=== PATIENT | male | born 1940 | race Caucasian/White ===

== ENCOUNTER 2022-06-04 01:38 | Inpatient (IN) ==
[2022-06-04] MEDS ORDERED: Iopamidol - 370 500 ML MLS IVP ONE (03:08)
[2022-06-04 03:09] LABS: Basophils # 0.1 K/mcL (0.0-0.2); Basophils % 0.6 %; Eosinophils % 0.2 %; Hematocrit 46.9 % (37.5-50.1); Hemoglobin 15.3 g/dL (12.9-16.9); Immature Granulocytes % 0.5 % (0-4); Lymphocytes # 0.6 K/mcL (0.6-4.6); Lymphocytes % 5.1 %; Mean Corpuscular HGB Conc 32.6 g/dL (31.6-35.5); Mean Corpuscular Hemoglobin 30.5 pg (28.0-33.3); Mean Corpuscular Volume 93.6 fL (83.0-100.0); Monocytes # 0.8 K/mcL (0.0-1.3); Monocytes % 6.9 %; Neutrophils # 10.1 K/mcL (1.6-8.9); Platelet Count 391 K/mcL (140-400); Red Blood Count 5.01 M/mcL (4.19-5.50); Red Cell Distribution Width 13.5 % (11.5-14.5); Segmented Neutrophils % 86.7 %; White Blood Count 11.6 K/mcL (4.3-11.1)
[2022-06-04 03:26] LABS: BUN/Creatinine Ratio 19 (6-26); Blood Urea Nitrogen 18 mg/dL (8-23); Calcium 10.2 mg/dL (8.6-10.3); Carbon Dioxide 34 mEq/L (23-29); Chloride 96 mEq/L (98-107); Glucose 183 mg/dL (70-105); Lipase 3 Units/L (11-82); Osmolality,Calculated 291 (280-300); Potassium 4.1 mEq/L (3.5-5.1); Sodium 137 mEq/L (136-145); eGFR For African Americans > 60 (> 60); eGFR For Non-African Americans > 60 (> 60)
[2022-06-04 03:39] LABS: Bilirubin,Urine Negative (Negative); Blood,Urine Small (Negative); Clarity,Urine Clear (Clear); Color,Urine Light-Yellow (Yellow); Glucose,Urine (UA) Normal (Normal); Hyaline Casts,Urine Moderate per lpf (None Seen); Ketones,Urine Negative (Negative); Leukocyte Esterase,Urine Negative (Negative); Mucus,Urine Few per lpf (None-Few); Nitrite,Urine Negative (Negative); Protein,Urine Negative (Neg-Trace); Specific Gravity,Urine 1.015 (1.010-1.025); Squamous Epithelial Cell,Urine Few per hpf (None-Few); Urobilinogen,Urine Normal (Normal); WBC,Urine 0-3 per hpf (0-3)
[2022-06-04] MEDS ORDERED: Melatonin 3 MG TABLET PO PRN ×2 (06:01→13:18)
[2022-06-04] MEDS ORDERED: Naloxone 0.4 MG/ML INJ IVP PRN ×2 (06:01→13:18)
[2022-06-04] MEDS ORDERED: Perflutren Lipid Microsphere 1.3 ML in 0.9 % Sodium Chloride 8.7 ML IVP PRN ×3 (06:27→13:18)
[2022-06-04 06:42] LABS: Thyroid Stimulating Hormone 8.393 mcIU/mL (0.340-5.600)
[2022-06-04] MEDS ORDERED: *HR* Rocuronium Bromide 50 MG/5 ML VIAL ONE (08:36)
[2022-06-04] MEDS ORDERED: Lidocaine -MPF 2% 5 ML VIAL ONE ×2 (08:36→11:02)
[2022-06-04] MEDS ORDERED: *HR* Propofol 200 MG/20 ML VIAL IVP ONE (08:36)
[2022-06-04] MEDS ORDERED: Lidocaine HCL 4 ML Topical Solution (Laryng-O-Jet Kit Sterile Pak) TP ONE (08:36)
[2022-06-04] MEDS ORDERED: *HR* Succinylcholine 200 MG/10 ML VIAL IVP ONE (08:36)
[2022-06-04] MEDS ORDERED: Ondansetron 4 MG/2 ML VIAL ONE (08:36)
[2022-06-04] MEDS ORDERED: *HR* FentaNYL (PF) 100 MCG/2 ML VIAL ONE ×2 (08:36→11:38)
[2022-06-04] MEDS ORDERED: atenoloL 50 MG TABLET PO SCH (09:00)
[2022-06-04] MEDS ORDERED: Famotidine 20 MG/2 ML VIAL IVP ONE (09:10)
[2022-06-04] MEDS ORDERED: Acetaminophen IV 1,000 MG/100 ML BAG IVPB ONE (09:15)
[2022-06-04] MEDS ORDERED: CefOXitin 1,000 MG VIAL ONE (09:48)
[2022-06-04] MEDS ORDERED: Tiotropium 10 INH DOSE IH SCH (10:00)
[2022-06-04] MEDS ORDERED: Famotidine 20 MG/2 ML VIAL ONE (10:18)
[2022-06-04] MEDS ORDERED: Ondansetron 4 MG/2 ML VIAL IVP PRN ×2 (10:19→13:18)
[2022-06-04] MEDS ORDERED: *HR* HYDROmorphone PF 0.5 MG/0.5 ML SYRINGE IVP PRN ×2 (10:19→13:18)
[2022-06-04] MEDS ORDERED: EPHEDrine 50 MG/ML VIAL ONE (10:43)
[2022-06-04] MEDS ORDERED: Levothyroxine Sodium 100 MCG VIAL IVP SCH (12:45)
[2022-06-04] MEDS ORDERED: Morphine Sulfate 2 MG/ML SYRINGE IVP PRN (13:18)
[2022-06-04] MEDS: *HR* Heparin 5,000 UNIT/ML VIAL SQ SCH (17:12)
[2022-06-04] MEDS: CeFAZolin 2,000 MG/120 ML BAG IVPB SCH (17:12)
[2022-06-04] MEDS ORDERED: *HR* Heparin 5,000 UNIT/ML VIAL SQ SCH (18:00)
[2022-06-05] MEDS: CeFAZolin 2,000 MG/120 ML BAG IVPB SCH ×2 (02:49→10:09)
[2022-06-05] MEDS: *HR* Heparin 5,000 UNIT/ML VIAL SQ SCH ×2 (06:41→17:34)
[2022-06-05] MEDS ORDERED: atenoloL 50 MG TABLET PO SCH (09:00)
[2022-06-05] MEDS: Tiotropium 10 INH DOSE IH SCH (10:26)
[2022-06-05 10:46] LABS: Basophils # 0.1 K/mcL (0.0-0.2); Basophils % 0.7 %; Eosinophils # 0.3 K/mcL (0.0-0.6); Eosinophils % 2.2 %; Hematocrit 45.2 % (37.5-50.1); Hemoglobin 14.4 g/dL (12.9-16.9); Immature Granulocytes % 0.5 % (0-4); Lymphocytes # 0.4 K/mcL (0.6-4.6); Lymphocytes % 2.7 %; Mean Corpuscular HGB Conc 31.9 g/dL (31.6-35.5); Mean Corpuscular Volume 94.2 fL (83.0-100.0); Mean Platelet Volume 10.9 fL (9.4-12.4); Monocytes # 1.9 K/mcL (0.0-1.3); Monocytes % 13.7 %; Neutrophils # 11.3 K/mcL (1.6-8.9); Platelet Count 364 K/mcL (140-400); Red Cell Distribution Width 13.6 % (11.5-14.5); Segmented Neutrophils % 80.2 %
[2022-06-05 11:08] LABS: Alanine Aminotransferase 5 Units/L (7-52); Albumin 3.3 g/dL (3.5-5.7); Alkaline Phosphatase 27 Units/L (34-104); Aspartate Amino Transferase 14 Units/L (13-39); BUN/Creatinine Ratio 20 (6-26); Bilirubin,Total 0.7 mg/dL (0.3-1.0); Blood Urea Nitrogen 16 mg/dL (8-23); Calcium 9.2 mg/dL (8.6-10.3); Carbon Dioxide 32 mEq/L (23-29); Chloride 100 mEq/L (98-107); Globulin 3.2 g/dL (2.4-3.5); Glucose 96 mg/dL (70-105); Osmolality,Calculated 285 (280-300); Potassium 3.6 mEq/L (3.5-5.1); Sodium 137 mEq/L (136-145); Total Protein 6.5 g/dL (6.4-8.9); eGFR For African Americans > 60 (> 60); eGFR For Non-African Americans > 60 (> 60)
[2022-06-05] MEDS: Benzonatate 100 MG CAPSULE PO SCH ×3 (12:11→21:12)
[2022-06-05 14:47] LABS: Estimated Average Glucose 131 mg/dl; Hemoglobin A1C 6.2 %
[2022-06-05] MEDS: Furosemide 40 MG TABLET PO SCH (17:34)
[2022-06-06] MEDS ORDERED: *HR* LORazepam 2 MG/ML VIAL IVP ONE ×2 (02:16→05:18)
[2022-06-06] MEDS: *HR* Heparin 5,000 UNIT/ML VIAL SQ SCH ×2 (05:55→17:45)
[2022-06-06 06:38] LABS: Eosinophils # 0.5 K/mcL (0.0-0.6); Hematocrit 42.5 % (37.5-50.1); Mean Corpuscular HGB Conc 32.9 g/dL (31.6-35.5); Mean Corpuscular Hemoglobin 30.4 pg (28.0-33.3); Mean Corpuscular Volume 92.2 fL (83.0-100.0); Platelet Count 339 K/mcL (140-400); Red Blood Count 4.61 M/mcL (4.19-5.50); Red Cell Distribution Width 13.6 % (11.5-14.5); White Blood Count 11.9 K/mcL (4.3-11.1)
[2022-06-06 07:05] LABS: Alanine Aminotransferase 4 Units/L (7-52); Albumin 3.2 g/dL (3.5-5.7); Albumin/Globulin Ratio 1.1 (1.1-2.2); Alkaline Phosphatase 27 Units/L (34-104); Aspartate Amino Transferase 16 Units/L (13-39); BUN/Creatinine Ratio 19 (6-26); Bilirubin,Total 0.9 mg/dL (0.3-1.0); Blood Urea Nitrogen 15 mg/dL (8-23); Calcium 9.3 mg/dL (8.6-10.3); Carbon Dioxide 31 mEq/L (23-29); Chloride 98 mEq/L (98-107); Glucose 105 mg/dL (70-105); Osmolality,Calculated 287 (280-300); Potassium 3.2 mEq/L (3.5-5.1); Sodium 138 mEq/L (136-145); Total Protein 6.2 g/dL (6.4-8.9); eGFR For African Americans > 60 (> 60); eGFR For Non-African Americans > 60 (> 60)
[2022-06-06] MEDS: Tiotropium 10 INH DOSE IH SCH (07:49)
[2022-06-06 08:00] LABS: Lymphocytes # 0.4 K/mcL (0.6-4.6); Monocytes # 2.3 K/mcL (0.0-1.3); Neutrophils # 8.8 K/mcL (1.6-8.9)
[2022-06-06 08:01] LABS: Platelet Estimate Normal (Normal)
[2022-06-06] MEDS ORDERED: Potassium Chloride Elixir 20 MEQ/15 ML UDC PO ONE (08:23)
[2022-06-06] MEDS: Benzonatate 100 MG CAPSULE PO SCH ×3 (11:20→21:00)
[2022-06-06] MEDS: Furosemide 40 MG TABLET PO SCH ×2 (11:20→17:28)
[2022-06-06] MEDS ORDERED: OLANZapine 10 MG VIAL IM ONE (14:45)
[2022-06-06 17:23] LABS: BUN/Creatinine Ratio 23 (6-26); Blood Urea Nitrogen 13 mg/dL (8-23); Calcium 9.2 mg/dL (8.6-10.3); Carbon Dioxide 31 mEq/L (23-29); Chloride 99 mEq/L (98-107); Glucose 81 mg/dL (70-105); Magnesium 1.7 mg/dL (1.6-2.6); Osmolality,Calculated 285 (280-300); Potassium 3.4 mEq/L (3.5-5.1); Sodium 138 mEq/L (136-145); eGFR For African Americans > 60 (> 60); eGFR For Non-African Americans > 60 (> 60)
[2022-06-07] MEDS: Levothyroxine 25 MCG TABLET PO SCH (05:58)
[2022-06-07] MEDS: *HR* Heparin 5,000 UNIT/ML VIAL SQ SCH ×2 (05:58→17:14)
[2022-06-07 07:45] LABS: Basophils # 0.1 K/mcL (0.0-0.2); Basophils % 0.7 %; Eosinophils # 0.8 K/mcL (0.0-0.6); Eosinophils % 8.2 %; Hemoglobin 14.3 g/dL (12.9-16.9); Immature Granulocytes % 0.3 % (0-4); Lymphocytes # 0.9 K/mcL (0.6-4.6); Lymphocytes % 9.7 %; Mean Corpuscular HGB Conc 31.8 g/dL (31.6-35.5); Mean Corpuscular Hemoglobin 29.9 pg (28.0-33.3); Mean Corpuscular Volume 94.1 fL (83.0-100.0); Mean Platelet Volume 11.2 fL (9.4-12.4); Monocytes # 1.7 K/mcL (0.0-1.3); Monocytes % 17.8 %; Neutrophils # 6.1 K/mcL (1.6-8.9); Platelet Count 341 K/mcL (140-400); Red Blood Count 4.78 M/mcL (4.19-5.50); Red Cell Distribution Width 13.2 % (11.5-14.5); Segmented Neutrophils % 63.3 %; White Blood Count 9.6 K/mcL (4.3-11.1)
[2022-06-07] MEDS: Tiotropium 10 INH DOSE IH SCH (07:46)
[2022-06-07] MEDS: Furosemide 40 MG TABLET PO SCH ×2 (08:04→17:13)
[2022-06-07] MEDS: Benzonatate 100 MG CAPSULE PO SCH ×3 (08:04→22:03)
[2022-06-07 08:07] LABS: Alanine Aminotransferase < 3 Units/L (7-52); Albumin 3.2 g/dL (3.5-5.7); Albumin/Globulin Ratio 1.1 (1.1-2.2); Alkaline Phosphatase 25 Units/L (34-104); Aspartate Amino Transferase 15 Units/L (13-39); BUN/Creatinine Ratio 23 (6-26); Bilirubin,Total 0.8 mg/dL (0.3-1.0); Blood Urea Nitrogen 15 mg/dL (8-23); Calcium 9.1 mg/dL (8.6-10.3); Carbon Dioxide 34 mEq/L (23-29); Chloride 99 mEq/L (98-107); Globulin 2.9 g/dL (2.4-3.5); Glucose 67 mg/dL (70-105); Osmolality,Calculated 285 (280-300); Potassium 4.1 mEq/L (3.5-5.1); Sodium 138 mEq/L (136-145); Total Protein 6.1 g/dL (6.4-8.9); eGFR For African Americans > 60 (> 60); eGFR For Non-African Americans > 60 (> 60)
[2022-06-07 08:08] LABS: VBG HCO3 32 mEq/L (21-27); VBG PCO2 57 mmHg (41-51); VBG PH 7.36 pH Units (7.32-7.42); VBG PO2 68 mmHg (25-50)
[2022-06-08] MEDS: *HR* Heparin 5,000 UNIT/ML VIAL SQ SCH ×2 (05:17→17:31)
[2022-06-08] MEDS: Levothyroxine 25 MCG TABLET PO SCH (05:17)
[2022-06-08] MEDS: Tiotropium 10 INH DOSE IH SCH (07:39)
[2022-06-08] MEDS: Benzonatate 100 MG CAPSULE PO SCH ×3 (08:40→19:34)
[2022-06-08] MEDS: Furosemide 40 MG TABLET PO SCH (08:40)
[2022-06-08] MEDS ORDERED: Furosemide 20 MG/2 ML VIAL IVP ONE (09:40)
[2022-06-08] MEDS ORDERED: Perflutren Lipid Microsphere 1.3 ML in 0.9 % Sodium Chloride 8.7 ML IVP PRN (09:43)
[2022-06-08 10:42] LABS: BUN/Creatinine Ratio 21 (6-26); Blood Urea Nitrogen 14 mg/dL (8-23); Calcium 8.9 mg/dL (8.6-10.3); Carbon Dioxide 33 mEq/L (23-29); Chloride 97 mEq/L (98-107); Glucose 113 mg/dL (70-105); Osmolality,Calculated 285 (280-300); Potassium 3.4 mEq/L (3.5-5.1); Sodium 137 mEq/L (136-145); eGFR For African Americans > 60 (> 60); eGFR For Non-African Americans > 60 (> 60)
[2022-06-08] MEDS ORDERED: Potassium Chloride Elixir 20 MEQ/15 ML UDC PO ONE (12:17)
[2022-06-08] MEDS: Furosemide 40 MG/4 ML VIAL IVP SCH (19:34)
[2022-06-09 04:55] LABS: BUN/Creatinine Ratio 21 (6-26); Blood Urea Nitrogen 13 mg/dL (8-23); Calcium 8.6 mg/dL (8.6-10.3); Carbon Dioxide 35 mEq/L (23-29); Chloride 99 mEq/L (98-107); Glucose 134 mg/dL (70-105); Osmolality,Calculated 288 (280-300); Potassium 3.4 mEq/L (3.5-5.1); Sodium 138 mEq/L (136-145); eGFR For African Americans > 60 (> 60); eGFR For Non-African Americans > 60 (> 60)
[2022-06-09] MEDS: Levothyroxine 25 MCG TABLET PO SCH (05:38)
[2022-06-09] MEDS: *HR* Heparin 5,000 UNIT/ML VIAL SQ SCH (05:38)
[2022-06-09] MEDS: Benzonatate 100 MG CAPSULE PO SCH (09:45)
[2022-06-09] MEDS: Furosemide 40 MG/4 ML VIAL IVP SCH (09:45)
[2022-06-09] MEDS: Tiotropium 10 INH DOSE IH SCH (09:57)
[2022-06-09 11:21] VITALS: BP 115/65; PULSE 72; TEMP 97.9; O2SAT 93
== END 2022-06-09 15:23 | disposition home health service (06) | DRG 350 ==
LOC: EMEROOARM 01:38 → 3ANU 01:38 → SUATTDRO 05:44 → 3ANU 06:28 → SUATTDRO 16:17
PROVIDERS: ADMIT Internal Medicine; ATTEND Internal Medicine

== ENCOUNTER 2022-08-30 10:47 | Inpatient (IN) ==
[2022-08-30] MEDS ORDERED: Iopamidol - 370 500 ML MLS IVP ONE (11:39)
[2022-08-30] MEDS ORDERED: Piperacillin/Tazobactam 3.375 GM in 0.9 % Sodium Chloride Mini Bag 100 ML IVPB ONE (11:41)
[2022-08-30 12:24] LABS: Basophils % 0.3 %; Eosinophils % 0.1 %; Hematocrit 44.6 % (37.5-50.1); Hemoglobin 14.7 g/dL (12.9-16.9); Immature Granulocytes % 0.4 % (0-4); Lymphocytes # 0.5 K/mcL (0.6-4.6); Lymphocytes % 3.3 %; Mean Corpuscular Hemoglobin 30.4 pg (28.0-33.3); Mean Corpuscular Volume 92.1 fL (83.0-100.0); Mean Platelet Volume 11.9 fL (9.4-12.4); Monocytes # 2.9 K/mcL (0.0-1.3); Neutrophils # 12.5 K/mcL (1.6-8.9); Platelet Count 318 K/mcL (140-400); Red Blood Count 4.84 M/mcL (4.19-5.50); Red Cell Distribution Width 15.3 % (11.5-14.5); Segmented Neutrophils % 77.9 %
[2022-08-30 13:12] LABS: Calcium 9.7 mg/dL (8.6-10.3); Potassium 4.7 mEq/L (3.5-5.1); Troponin I 0.04 ng/mL (< 0.04)
[2022-08-30] MEDS ORDERED: Naloxone 0.4 MG/ML INJ IVP PRN (14:22)
[2022-08-30] MEDS ORDERED: MOM Conc 10 ML UD.LIQ PO PRN (14:22)
[2022-08-30] MEDS ORDERED: Ondansetron ODT 4 MG TAB.RAPDIS SL PRN (14:22)
[2022-08-30] MEDS: 0.9 % Sodium Chloride 1,000 ML IVC SCH (17:13)
[2022-08-30] MEDS: Albumin 25% 25gram/100mL 25 GM/100 ML IV.SOLN IVPB SCH (17:15)
[2022-08-30] MEDS: Melatonin 3 MG TABLET PO PRN (21:38)
[2022-08-30] MEDS: Piperacillin/Tazobactam 3.375 GM in 0.9 % Sodium Chloride Mini Bag 100 ML IVPB SCH (21:38)
[2022-08-30 22:19] LABS: Bilirubin,Urine Negative (Negative); Blood,Urine Negative (Negative); Clarity,Urine Clear (Clear); Color,Urine Yellow (Yellow); Glucose,Urine (UA) Normal (Normal); Ketones,Urine Negative (Negative); Leukocyte Esterase,Urine Negative (Negative); Nitrite,Urine Negative (Negative); Protein,Urine Negative (Neg-Trace); Specific Gravity,Urine 1.016 (1.010-1.025); Urobilinogen,Urine Normal (Normal)
[2022-08-31] MEDS: Albumin 25% 25gram/100mL 25 GM/100 ML IV.SOLN IVPB SCH ×2 (01:03→06:59)
[2022-08-31] MEDS ORDERED: Acetaminophen 325 MG TABLET PO ONE (01:36)
[2022-08-31 02:50] LABS: Basophils % 0.1 %; Eosinophils % 0.1 %; Hematocrit 36.1 % (37.5-50.1); Immature Granulocytes % 0.6 % (0-4); Lymphocytes # 0.5 K/mcL (0.6-4.6); Lymphocytes % 3.3 %; Mean Corpuscular HGB Conc 33.5 g/dL (31.6-35.5); Mean Corpuscular Hemoglobin 30.2 pg (28.0-33.3); Mean Platelet Volume 11.5 fL (9.4-12.4); Monocytes # 2.7 K/mcL (0.0-1.3); Monocytes % 16.8 %; Neutrophils # 12.8 K/mcL (1.6-8.9); Platelet Count 275 K/mcL (140-400); Red Blood Count 4.01 M/mcL (4.19-5.50); Segmented Neutrophils % 79.1 %; White Blood Count 16.2 K/mcL (4.3-11.1)
[2022-08-31 02:51] LABS: Hemoglobin 12.1 g/dL (12.9-16.9)
[2022-08-31 03:17] LABS: Albumin/Globulin Ratio 1.2 (1.1-2.2); Bilirubin,Total 1.1 mg/dL (0.3-1.0); Calcium 8.9 mg/dL (8.6-10.3); Globulin 2.6 g/dL (2.4-3.5); Potassium 3.3 mEq/L (3.5-5.1); Total Protein 5.6 g/dL (6.4-8.9)
[2022-08-31] MEDS ORDERED: *HR* Heparin 5,000 UNIT/ML VIAL IVP PRN ×4 (03:22→07:38)
[2022-08-31] MEDS ORDERED: *HR* Heparin 5,000 UNIT/ML VIAL IVP ONE ×2 (03:22→07:38)
[2022-08-31] MEDS ORDERED: Heparin 25,000UNIT/250ML 1/2NS 25,000 UNIT/250 ML IV.SOLN IVC SCH (03:30)
[2022-08-31] MEDS ORDERED: 0.9 % Sodium Chloride 1,000 ML IVC ONE ×2 (04:52→08:50)
[2022-08-31 06:18] LABS: Heparin anti-factor XA UFH 0.1 IU/mL (0.30-0.70); INR 1.4; Prothrombin Time 15.4 Seconds (9.4-12.1)
[2022-08-31 06:24] LABS: A.calcoaceticus-baumannii cplx Not Detected (Not Detect); Bacteroides fragilis by PCR Not Detected (Not Detect); CTX-M ESBL Gene Not Detected (Not Detect); Candida albicans by PCR Not Detected (Not Detect); Candida auris by PCR Not Detected (Not Detect); Candida glabrata by PCR Not Detected (Not Detect); Candida krusei by PCR Not Detected (Not Detect); Candida parapsilosis by PCR Not Detected (Not Detect); Candida tropicalis by PCR Not Detected (Not Detect); Crypto. neoformans/gattii PCR Not Detected (Not Detect); Enterobacter cloacae Cmplx PCR Not Detected (Not Detect); Enterobacterales by PCR DETECTED (Not Detect); Enterococcus faecalis by PCR Not Detected (Not Detect); Enterococcus faecium by PCR Not Detected (Not Detect); Escherichia coli by PCR Not Detected (Not Detect); IMP Carbapenem-Resist Gene Not Detected (Not Detect); Klebs. pneumoniae group by PCR Not Detected (Not Detect); Klebsiella aerogenes by PCR Not Detected (Not Detect); Klebsiella oxytoca by PCR Not Detected (Not Detect); NDM Carbapenem-Resist Gene Not Detected (Not Detect); OXA-48-like Carbap-Resist Gene Not Detected (Not Detect); Proteus by PCR Not Detected (Not Detect); Pseudomonas aeruginosa by PCR Not Detected (Not Detect); Salmonella species by PCR Not Detected (Not Detect); Serratia marcescens by PCR Not Detected (Not Detect); Staph epidermidis by PCR Not Detected (Not Detect); Staph lugdunensis by PCR Not Detected (Not Detect); Staphylococcus aureus by PCR Not Detected (Not Detect); Staphylococcus by PCR Not Detected (Not Detect); Stenotrophomonas maltophilia Not Detected (Not Detect); Streptococcus agalactiae(B)PCR Not Detected (Not Detect); Streptococcus by PCR Not Detected (Not Detect); Streptococcus pneumoniae PCR Not Detected (Not Detect); Streptococcus pyogenes (A) PCR Not Detected (Not Detect); VIM Carbapenem-Resist Gene Not Detected (Not Detect); blaKPC Carbapenem-Resist Gene Not Detected (Not Detect)
[2022-08-31] MEDS ORDERED: 0.9 % Sodium Chloride 500 ML IVC ONE (06:30)
[2022-08-31] MEDS ORDERED: Albumin 25% 25gram/100mL 25 GM/100 ML IV.SOLN IVPB ONE (06:33)
[2022-08-31 06:35] LABS: Hematocrit 36.6 % (37.5-50.1); Hemoglobin 11.8 g/dL (12.9-16.9); Mean Corpuscular HGB Conc 32.2 g/dL (31.6-35.5); Mean Corpuscular Hemoglobin 29.8 pg (28.0-33.3); Mean Corpuscular Volume 92.4 fL (83.0-100.0); Mean Platelet Volume 11.6 fL (9.4-12.4); Platelet Count 261 K/mcL (140-400); Red Blood Count 3.96 M/mcL (4.19-5.50); Red Cell Distribution Width 15.1 % (11.5-14.5); White Blood Count 16.7 K/mcL (4.3-11.1)
[2022-08-31] MEDS: Heparin 25,000UNIT/250ML 1/2NS 25,000 UNIT/250 ML IV.SOLN IVC SCH (07:46)
[2022-08-31] MEDS: 0.9 % Sodium Chloride 1,000 ML IVC SCH (07:49)
[2022-08-31] MEDS ORDERED: *HR* Metoprolol 5 MG/5 ML VIAL IVP ONE ×3 (08:29→09:29)
[2022-08-31] MEDS: Albumin Human 5% 12.5 GM/250 ML IV.SOLN IVC SCH ×2 (08:35→08:52)
[2022-08-31] MEDS: Piperacillin/Tazobactam 3.375 GM in 0.9 % Sodium Chloride Mini Bag 100 ML IVPB SCH ×3 (08:35→20:50)
[2022-08-31 09:53] LABS: Hematocrit 32.9 % (37.5-50.1); Hemoglobin 10.8 g/dL (12.9-16.9); Mean Corpuscular HGB Conc 32.8 g/dL (31.6-35.5); Mean Corpuscular Hemoglobin 30.8 pg (28.0-33.3); Mean Corpuscular Volume 93.7 fL (83.0-100.0); Mean Platelet Volume 11.5 fL (9.4-12.4); Platelet Count 214 K/mcL (140-400); Red Blood Count 3.51 M/mcL (4.19-5.50); Red Cell Distribution Width 15.3 % (11.5-14.5); White Blood Count 14.3 K/mcL (4.3-11.1)
[2022-08-31 09:56] LABS: VBG Ionized Calcium 0.99 mmol/L (1.15-1.35)
[2022-08-31 10:11] LABS: Calcium 7.6 mg/dL (8.6-10.3); Magnesium 1.6 mg/dL (1.6-2.6); Phosphorous 3.2 mg/dL (2.7-4.5); Potassium 3.5 mEq/L (3.5-5.1)
[2022-08-31 10:33] LABS: INR 1.5; Prothrombin Time 16.2 Seconds (9.4-12.1)
[2022-08-31 10:34] LABS: Heparin anti-factor XA UFH < 0.04 IU/mL (0.30-0.70)
[2022-08-31 10:36] LABS: INR 1.5; Prothrombin Time 16.2 Seconds (9.4-12.1)
[2022-08-31] MEDS ORDERED: Amiodarone Premix 150 MG/100 ML BAG IVPB ONE (10:55)
[2022-08-31] MEDS ORDERED: Amiodarone Premix 360 MG/200 ML BAG IVC ONE (10:56)
[2022-08-31] MEDS ORDERED: Furosemide 20 MG/2 ML VIAL IVP ONE (13:18)
[2022-08-31] MEDS ORDERED: *HR* Metoprolol 5 MG/5 ML VIAL IVP PRN (16:34)
[2022-08-31] MEDS: Amiodarone Premix 360 MG/200 ML BAG IVC SCH ×2 (17:39→22:56)
[2022-09-01] MEDS: Heparin 25,000UNIT/250ML 1/2NS 25,000 UNIT/250 ML IV.SOLN IVC SCH ×3 (01:58→23:18)
[2022-09-01] MEDS: Piperacillin/Tazobactam 3.375 GM in 0.9 % Sodium Chloride Mini Bag 100 ML IVPB SCH ×3 (05:19→19:18)
[2022-09-01] MEDS: Amiodarone Premix 360 MG/200 ML BAG IVC SCH ×2 (05:20→10:57)
[2022-09-01 05:28] LABS: Basophils % 0.2 %; Eosinophils % 0.1 %; Hematocrit 35.9 % (37.5-50.1); Hemoglobin 11.6 g/dL (12.9-16.9); Immature Granulocytes % 0.4 % (0-4); Lymphocytes % 6.7 %; Mean Corpuscular HGB Conc 32.3 g/dL (31.6-35.5); Mean Corpuscular Hemoglobin 30.9 pg (28.0-33.3); Mean Corpuscular Volume 95.5 fL (83.0-100.0); Mean Platelet Volume 11.7 fL (9.4-12.4); Monocytes # 2.2 K/mcL (0.0-1.3); Monocytes % 14.7 %; Neutrophils # 11.4 K/mcL (1.6-8.9); Platelet Count 233 K/mcL (140-400); Red Blood Count 3.76 M/mcL (4.19-5.50); Red Cell Distribution Width 15.3 % (11.5-14.5); Segmented Neutrophils % 77.9 %; White Blood Count 14.6 K/mcL (4.3-11.1)
[2022-09-01 05:32] LABS: VBG Ionized Calcium 1.04 mmol/L (1.15-1.35)
[2022-09-01 05:35] LABS: Heparin anti-factor XA UFH 0.34 IU/mL (0.30-0.70); INR 1.4; Prothrombin Time 15.9 Seconds (9.4-12.1)
[2022-09-01 05:38] LABS: Activated Partial Thrombo Time 91.5 Seconds (26.0-36.0)
[2022-09-01 06:19] LABS: Albumin 3.1 g/dL (3.5-5.7); Albumin/Globulin Ratio 1.4 (1.1-2.2); Bilirubin,Direct 0.3 mg/dL (0.0-0.2); Bilirubin,Indirect 0.5 mg/dL (0.0-1.0); Bilirubin,Total 0.8 mg/dL (0.3-1.0); Calcium 8.3 mg/dL (8.6-10.3); Globulin 2.2 g/dL (2.4-3.5); Magnesium 2.4 mg/dL (1.6-2.6); Phosphorous 3.6 mg/dL (2.7-4.5); Potassium 3.8 mEq/L (3.5-5.1); Total Protein 5.3 g/dL (6.4-8.9)
[2022-09-01] MEDS: Aspirin Enteric Coated 81 MG Tablet PO SCH (08:03)
[2022-09-01] MEDS ORDERED: *HR* Heparin 5,000 UNIT/ML VIAL IVP PRN (09:36)
[2022-09-01] MEDS: Albumin 25% 25gram/100mL 25 GM/100 ML IV.SOLN IVPB SCH ×2 (10:59→19:19)
[2022-09-01] MEDS: *HR* Heparin 5,000 UNIT/ML VIAL IVP PRN (11:20)
[2022-09-01] MEDS: Furosemide 40 MG/4 ML VIAL IVP SCH ×2 (12:44→19:18)
[2022-09-01 16:24] LABS: Calcium 8.3 mg/dL (8.6-10.3)
[2022-09-01] MEDS: Melatonin 3 MG TABLET PO PRN (19:23)
[2022-09-01] MEDS: *HR* Amiodarone 200 MG TABLET PO SCH (22:29)
[2022-09-02 01:36] LABS: Basophils % 0.1 %; Eosinophils # 0.1 K/mcL (0.0-0.6); Eosinophils % 0.5 %; Hematocrit 32.2 % (37.5-50.1); Hemoglobin 10.4 g/dL (12.9-16.9); Immature Granulocytes % 0.5 % (0-4); Lymphocytes # 0.7 K/mcL (0.6-4.6); Mean Corpuscular HGB Conc 32.3 g/dL (31.6-35.5); Mean Corpuscular Hemoglobin 30.2 pg (28.0-33.3); Mean Corpuscular Volume 93.6 fL (83.0-100.0); Mean Platelet Volume 11.7 fL (9.4-12.4); Monocytes # 2.3 K/mcL (0.0-1.3); Monocytes % 15.4 %; Neutrophils # 11.5 K/mcL (1.6-8.9); Platelet Count 268 K/mcL (140-400); Red Blood Count 3.44 M/mcL (4.19-5.50); Red Cell Distribution Width 15.3 % (11.5-14.5); Segmented Neutrophils % 78.5 %; White Blood Count 14.7 K/mcL (4.3-11.1)
[2022-09-02 01:43] LABS: Heparin anti-factor XA UFH 0.47 IU/mL (0.30-0.70); INR 1.4; Prothrombin Time 15.7 Seconds (9.4-12.1)
[2022-09-02 01:50] LABS: VBG Ionized Calcium 1.13 mmol/L (1.15-1.35)
[2022-09-02 01:57] LABS: Albumin 3.4 g/dL (3.5-5.7); Albumin/Globulin Ratio 1.5 (1.1-2.2); Bilirubin,Direct 0.3 mg/dL (0.0-0.2); Bilirubin,Indirect 0.4 mg/dL (0.0-1.0); Bilirubin,Total 0.7 mg/dL (0.3-1.0); Calcium 8.5 mg/dL (8.6-10.3); Globulin 2.2 g/dL (2.4-3.5); Magnesium 1.9 mg/dL (1.6-2.6); Phosphorous 2.8 mg/dL (2.7-4.5); Potassium 3.5 mEq/L (3.5-5.1); Total Protein 5.6 g/dL (6.4-8.9)
[2022-09-02] MEDS: Piperacillin/Tazobactam 3.375 GM in 0.9 % Sodium Chloride Mini Bag 100 ML IVPB SCH ×3 (06:22→20:44)
[2022-09-02] MEDS: *HR* Amiodarone 200 MG TABLET PO SCH ×2 (08:49→20:42)
[2022-09-02] MEDS: Aspirin Enteric Coated 81 MG Tablet PO SCH (08:50)
[2022-09-02] MEDS: Albumin 25% 25gram/100mL 25 GM/100 ML IV.SOLN IVPB SCH ×2 (13:04→20:40)
[2022-09-02] MEDS: Furosemide 40 MG/4 ML VIAL IVP SCH ×2 (14:52→20:28)
[2022-09-02] MEDS: Ipratropium/Albuterol Neb 3 ML IH PRN (20:16)
[2022-09-03 02:24] LABS: VBG Ionized Calcium 1.11 mmol/L (1.15-1.35)
[2022-09-03 02:36] LABS: Basophils % 0.1 %; Eosinophils % 0.1 %; Hematocrit 33.1 % (37.5-50.1); Hemoglobin 10.9 g/dL (12.9-16.9); Immature Granulocytes % 0.8 % (0-4); Lymphocytes # 0.4 K/mcL (0.6-4.6); Lymphocytes % 2.8 %; Mean Corpuscular HGB Conc 32.9 g/dL (31.6-35.5); Mean Corpuscular Hemoglobin 30.4 pg (28.0-33.3); Mean Corpuscular Volume 92.2 fL (83.0-100.0); Mean Platelet Volume 11.5 fL (9.4-12.4); Monocytes # 1.8 K/mcL (0.0-1.3); Monocytes % 12.8 %; Neutrophils # 11.6 K/mcL (1.6-8.9); Platelet Count 255 K/mcL (140-400); Red Blood Count 3.59 M/mcL (4.19-5.50); Red Cell Distribution Width 15.5 % (11.5-14.5); Segmented Neutrophils % 83.4 %; White Blood Count 13.9 K/mcL (4.3-11.1)
[2022-09-03 02:44] LABS: INR 1.4; Prothrombin Time 15.7 Seconds (9.4-12.1)
[2022-09-03 02:47] LABS: Activated Partial Thrombo Time 93.3 Seconds (26.0-36.0)
[2022-09-03 02:51] LABS: Albumin 3.7 g/dL (3.5-5.7); Albumin/Globulin Ratio 1.7 (1.1-2.2); Bilirubin,Direct 0.4 mg/dL (0.0-0.2); Bilirubin,Indirect 0.7 mg/dL (0.0-1.0); Bilirubin,Total 1.1 mg/dL (0.3-1.0); Calcium 8.8 mg/dL (8.6-10.3); Globulin 2.2 g/dL (2.4-3.5); Magnesium 1.5 mg/dL (1.6-2.6); Phosphorous 1.8 mg/dL (2.7-4.5); Potassium 3.3 mEq/L (3.5-5.1); Total Protein 5.9 g/dL (6.4-8.9)
[2022-09-03] MEDS: Heparin 25,000UNIT/250ML 1/2NS 25,000 UNIT/250 ML IV.SOLN IVC SCH ×2 (04:15→18:22)
[2022-09-03] MEDS: *HR* Heparin 5,000 UNIT/ML VIAL IVP PRN (04:17)
[2022-09-03] MEDS: Piperacillin/Tazobactam 3.375 GM in 0.9 % Sodium Chloride Mini Bag 100 ML IVPB SCH ×3 (04:24→21:31)
[2022-09-03] MEDS: *HR* Amiodarone 200 MG TABLET PO SCH ×2 (08:56→21:30)
[2022-09-03] MEDS: Aspirin Enteric Coated 81 MG Tablet PO SCH (08:56)
[2022-09-03] MEDS ORDERED: Torsemide 20 MG TABLET PO SCH (21:00)
[2022-09-03] MEDS ORDERED: Furosemide 40 MG/4 ML VIAL IVP ONE (22:32)
[2022-09-03] MEDS: Ipratropium/Albuterol Neb 3 ML IH PRN (23:10)
[2022-09-04 01:37] LABS: ABG Base Excess 6 mEq/L (-2 to 3); ABG HCO3 31 mEq/L (21-27); ABG Oxygen Saturation 93 % (95-98); ABG PCO2 45 mmHg (35-45); ABG PH 7.44 pH Units (7.32-7.45); ABG PO2 65 mmHg (85-104); ABG TCO2 32 mEq/L (20-26)
[2022-09-04 02:05] LABS: VBG Ionized Calcium 1.18 mmol/L (1.15-1.35)
[2022-09-04 02:11] LABS: Basophils % 0.1 %; Hematocrit 33.9 % (37.5-50.1); Hemoglobin 11.1 g/dL (12.9-16.9); Immature Granulocytes % 0.9 % (0-4); Lymphocytes # 0.4 K/mcL (0.6-4.6); Lymphocytes % 2.9 %; Mean Corpuscular HGB Conc 32.7 g/dL (31.6-35.5); Mean Corpuscular Hemoglobin 30.2 pg (28.0-33.3); Mean Corpuscular Volume 92.1 fL (83.0-100.0); Mean Platelet Volume 11.8 fL (9.4-12.4); Monocytes # 2.1 K/mcL (0.0-1.3); Monocytes % 14.5 %; Platelet Count 292 K/mcL (140-400); Red Blood Count 3.68 M/mcL (4.19-5.50); Red Cell Distribution Width 15.5 % (11.5-14.5); Segmented Neutrophils % 81.6 %; White Blood Count 14.7 K/mcL (4.3-11.1)
[2022-09-04 02:21] LABS: INR 1.4; Prothrombin Time 15.9 Seconds (9.4-12.1)
[2022-09-04 02:23] LABS: Activated Partial Thrombo Time 92.4 Seconds (26.0-36.0)
[2022-09-04 02:31] LABS: Alanine Aminotransferase 47 Units/L (7-52); Albumin 3.4 g/dL (3.5-5.7); Albumin/Globulin Ratio 1.4 (1.1-2.2); Alkaline Phosphatase 77 Units/L (34-104); Aspartate Amino Transferase 38 Units/L (13-39); BUN/Creatinine Ratio 38 (6-26); Bilirubin,Direct 0.3 mg/dL (0.0-0.2); Bilirubin,Indirect 0.8 mg/dL (0.0-1.0); Bilirubin,Total 1.1 mg/dL (0.3-1.0); Blood Urea Nitrogen 27 mg/dL (8-23); Carbon Dioxide 29 mEq/L (23-29); Chloride 104 mEq/L (98-107); Globulin 2.5 g/dL (2.4-3.5); Glucose 160 mg/dL (70-105); Magnesium 1.5 mg/dL (1.6-2.6); Osmolality,Calculated 299 (280-300); Phosphorous 1.9 mg/dL (2.7-4.5); Potassium 3.2 mEq/L (3.5-5.1); Sodium 140 mEq/L (136-145); Total Protein 5.9 g/dL (6.4-8.9)
[2022-09-04] MEDS: Piperacillin/Tazobactam 3.375 GM in 0.9 % Sodium Chloride Mini Bag 100 ML IVPB SCH ×3 (06:04→20:36)
[2022-09-04] MEDS: Levothyroxine 25 MCG TABLET PO SCH (06:06)
[2022-09-04] MEDS: Heparin 25,000UNIT/250ML 1/2NS 25,000 UNIT/250 ML IV.SOLN IVC SCH ×2 (07:56→21:35)
[2022-09-04] MEDS: Aspirin Enteric Coated 81 MG Tablet PO SCH (07:57)
[2022-09-04] MEDS: Loratadine 10 MG TABLET PO SCH (07:58)
[2022-09-04] MEDS: *HR* Amiodarone 200 MG TABLET PO SCH ×2 (07:58→20:35)
[2022-09-04] MEDS ORDERED: Furosemide 40 MG/4 ML VIAL IVP SCH (08:00)
[2022-09-04] MEDS ORDERED: TROSPIUM CHLORIDE 20 MG PO SCH (09:00)
[2022-09-04] MEDS ORDERED: Potassium Phosphate 44 MEQ in 0.9 % Sodium Chloride 250 ML IVPB ONE (09:15)
[2022-09-04] MEDS: Furosemide 40 MG/4 ML VIAL IVP SCH ×2 (10:46→18:23)
[2022-09-04] MEDS ORDERED: Vancomycin 1,250 MG/262.5 ML IV.SOLN IVPB SCH ×2 (12:00→14:00)
[2022-09-05 03:18] LABS: Basophils % 0.1 %; Eosinophils % 0.1 %; Hematocrit 30.1 % (37.5-50.1); Hemoglobin 9.7 g/dL (12.9-16.9); Immature Granulocytes % 0.9 % (0-4); Lymphocytes # 0.5 K/mcL (0.6-4.6); Lymphocytes % 2.8 %; Mean Corpuscular HGB Conc 32.2 g/dL (31.6-35.5); Mean Corpuscular Hemoglobin 30.4 pg (28.0-33.3); Mean Corpuscular Volume 94.4 fL (83.0-100.0); Mean Platelet Volume 11.8 fL (9.4-12.4); Monocytes # 1.9 K/mcL (0.0-1.3); Monocytes % 11.7 %; Neutrophils # 13.6 K/mcL (1.6-8.9); Platelet Count 272 K/mcL (140-400); Red Blood Count 3.19 M/mcL (4.19-5.50); Red Cell Distribution Width 15.7 % (11.5-14.5); Segmented Neutrophils % 84.4 %; White Blood Count 16.1 K/mcL (4.3-11.1)
[2022-09-05 03:22] LABS: INR 1.5; Prothrombin Time 16.5 Seconds (9.4-12.1)
[2022-09-05 03:27] LABS: VBG Ionized Calcium 1.14 mmol/L (1.15-1.35)
[2022-09-05 03:28] LABS: Alanine Aminotransferase 37 Units/L (7-52); Albumin 2.9 g/dL (3.5-5.7); Albumin/Globulin Ratio 1.2 (1.1-2.2); Alkaline Phosphatase 60 Units/L (34-104); Aspartate Amino Transferase 27 Units/L (13-39); BUN/Creatinine Ratio 31 (6-26); Bilirubin,Direct 0.5 mg/dL (0.0-0.2); Bilirubin,Indirect 0.5 mg/dL (0.0-1.0); Blood Urea Nitrogen 23 mg/dL (8-23); Calcium 8.4 mg/dL (8.6-10.3); Carbon Dioxide 33 mEq/L (23-29); Chloride 104 mEq/L (98-107); Globulin 2.4 g/dL (2.4-3.5); Glucose 145 mg/dL (70-105); Magnesium 1.6 mg/dL (1.6-2.6); Osmolality,Calculated 302 (280-300); Phosphorous 3.5 mg/dL (2.7-4.5); Potassium 3.3 mEq/L (3.5-5.1); Sodium 143 mEq/L (136-145); Total Protein 5.3 g/dL (6.4-8.9)
[2022-09-05 03:46] LABS: Activated Partial Thrombo Time > 360.0 Seconds (26.0-36.0)
[2022-09-05] MEDS: Piperacillin/Tazobactam 3.375 GM in 0.9 % Sodium Chloride Mini Bag 100 ML IVPB SCH ×3 (04:37→19:51)
[2022-09-05] MEDS ORDERED: 0.9 % Sodium Chloride 250 ML ONE (05:24)
[2022-09-05] MEDS: Levothyroxine 25 MCG TABLET PO SCH (05:43)
[2022-09-05] MEDS: Aspirin Enteric Coated 81 MG Tablet PO SCH (08:08)
[2022-09-05] MEDS: Loratadine 10 MG TABLET PO SCH (08:09)
[2022-09-05] MEDS: *HR* Amiodarone 200 MG TABLET PO SCH ×2 (08:09→19:51)
[2022-09-05] MEDS: Furosemide 40 MG/4 ML VIAL IVP SCH ×2 (08:10→16:03)
[2022-09-05] MEDS ORDERED: Iopamidol - 370 500 ML MLS IVP ONE (08:50)
[2022-09-05] MEDS ORDERED: Vancomycin 1 EACH in 0.9 % Sodium Chloride 250 ML IVPB SCH (11:00)
[2022-09-05] MEDS: Heparin 25,000UNIT/250ML 1/2NS 25,000 UNIT/250 ML IV.SOLN IVC SCH (11:40)
[2022-09-05] MEDS: MethylPREDNISolone 40 MG/ML VIAL IVP SCH ×2 (11:45→16:06)
[2022-09-05] MEDS ORDERED: Saline Nasal Spray 44 ML BOTTLE NS PRN (12:27)
[2022-09-05] MEDS: Vancomycin 1,250 MG/262.5 ML IV.SOLN IVPB SCH (12:34)
[2022-09-05] MEDS: *HR* Heparin 5,000 UNIT/ML VIAL IVP PRN (12:36)
[2022-09-05] MEDS: hydrOXYzine pamoate 25 MG CAPSULE PO PRN ×2 (14:03→19:54)
[2022-09-05] MEDS: Ipratropium/Albuterol Neb 3 ML IH SCH ×4 (15:20→22:58)
[2022-09-05] MEDS ORDERED: QUEtiapine Fumarate 25 MG TABLET PO PRN (22:26)
[2022-09-05] MEDS ORDERED: Ziprasidone 10 MG, Closed System Device IM Kit 1 EACH in Water for inj. (sterile) 0.5 ML IM ONE (22:27)
[2022-09-06] MEDS: MethylPREDNISolone 40 MG/ML VIAL IVP SCH ×3 (01:07→17:16)
[2022-09-06] MEDS: Ziprasidone 10 MG, Closed System Device IM Kit 1 EACH in Water for inj. (sterile) 0.5 ML IM PRN ×2 (01:30→04:09)
[2022-09-06 02:03] LABS: INR 1.4; Prothrombin Time 15.6 Seconds (9.4-12.1)
[2022-09-06 02:06] LABS: Activated Partial Thrombo Time 62.8 Seconds (26.0-36.0)
[2022-09-06] MEDS: Heparin 25,000UNIT/250ML 1/2NS 25,000 UNIT/250 ML IV.SOLN IVC SCH (02:09)
[2022-09-06 03:16] LABS: Basophils % 0.1 %; Hematocrit 29.6 % (37.5-50.1); Hemoglobin 9.3 g/dL (12.9-16.9); Lymphocytes # 0.3 K/mcL (0.6-4.6); Lymphocytes % 1.7 %; Mean Corpuscular HGB Conc 31.4 g/dL (31.6-35.5); Mean Corpuscular Hemoglobin 29.7 pg (28.0-33.3); Mean Corpuscular Volume 94.6 fL (83.0-100.0); Mean Platelet Volume 11.5 fL (9.4-12.4); Monocytes # 0.6 K/mcL (0.0-1.3); Monocytes % 3.5 %; Neutrophils # 15.2 K/mcL (1.6-8.9); Platelet Count 302 K/mcL (140-400); Red Blood Count 3.13 M/mcL (4.19-5.50); Red Cell Distribution Width 15.6 % (11.5-14.5); Segmented Neutrophils % 93.7 %; White Blood Count 16.3 K/mcL (4.3-11.1)
[2022-09-06 03:41] LABS: Albumin 3.1 g/dL (3.5-5.7); Albumin/Globulin Ratio 1.3 (1.1-2.2); Bilirubin,Direct 0.3 mg/dL (0.0-0.2); Bilirubin,Indirect 0.7 mg/dL (0.0-1.0); Calcium 8.4 mg/dL (8.6-10.3); Globulin 2.4 g/dL (2.4-3.5); Magnesium 1.7 mg/dL (1.6-2.6); Phosphorous 4.2 mg/dL (2.7-4.5); Potassium 4.1 mEq/L (3.5-5.1); Total Protein 5.5 g/dL (6.4-8.9)
[2022-09-06] MEDS: Ipratropium/Albuterol Neb 3 ML IH SCH ×6 (04:14→22:56)
[2022-09-06] MEDS: Piperacillin/Tazobactam 3.375 GM in 0.9 % Sodium Chloride Mini Bag 100 ML IVPB SCH ×2 (04:44→12:40)
[2022-09-06] MEDS: Levothyroxine 25 MCG TABLET PO SCH (04:45)
[2022-09-06] MEDS: Loratadine 10 MG TABLET PO SCH (08:49)
[2022-09-06] MEDS: *HR* Amiodarone 200 MG TABLET PO SCH ×2 (08:49→19:56)
[2022-09-06] MEDS: Aspirin Enteric Coated 81 MG Tablet PO SCH (08:49)
[2022-09-06] MEDS: Furosemide 40 MG/4 ML VIAL IVP SCH ×2 (08:50→17:16)
[2022-09-06] MEDS: Vancomycin 1,250 MG/262.5 ML IV.SOLN IVPB SCH (12:40)
[2022-09-06] MEDS ORDERED: *HR* LORazepam Oral Conc 2 MG/ML SL PRN (13:03)
[2022-09-06] MEDS ORDERED: Morphine Sulfate Oral CONC 10 MG/0.5 ML ORAL.SYG SL PRN (13:04)
[2022-09-06] MEDS: Morphine Sulfate Oral CONC 10 MG/0.5 ML ORAL.SYG SL SCH ×3 (13:23→20:38)
[2022-09-07] MEDS: MethylPREDNISolone 40 MG/ML VIAL IVP SCH ×3 (00:37→16:24)
[2022-09-07] MEDS: Morphine Sulfate Oral CONC 10 MG/0.5 ML ORAL.SYG SL SCH ×6 (00:38→20:41)
[2022-09-07] MEDS: Ipratropium/Albuterol Neb 3 ML IH SCH ×2 (03:37→07:54)
[2022-09-07] MEDS: Levothyroxine 25 MCG TABLET PO SCH (06:31)
[2022-09-07] MEDS: Furosemide 40 MG/4 ML VIAL IVP SCH (09:00)
[2022-09-07] MEDS: *HR* Amiodarone 200 MG TABLET PO SCH ×2 (09:04→20:41)
[2022-09-07] MEDS: hydrOXYzine pamoate 25 MG CAPSULE PO PRN (09:04)
[2022-09-07] MEDS: Aspirin Enteric Coated 81 MG Tablet PO SCH (09:05)
[2022-09-07] MEDS: Loratadine 10 MG TABLET PO SCH (09:06)
[2022-09-07] MEDS ORDERED: Ipratropium/Albuterol Neb 3 ML IH PRN (10:31)
[2022-09-07] MEDS ORDERED: Bisacodyl 10 MG RECTAL SUPPOSITORY RC PRN (10:35)
[2022-09-07] MEDS ORDERED: Loratadine 10 MG TABLET PO PRN (10:35)
[2022-09-07] MEDS ORDERED: Bisacodyl 10 MG RECTAL SUPPOSITORY RC ONE (13:00)
[2022-09-07] MEDS: *HR* LORazepam Oral Conc 2 MG/ML SL SCH (20:41)
[2022-09-07 21:40] VITALS: O2SAT 98
[2022-09-08] MEDS: MethylPREDNISolone 40 MG/ML VIAL IVP SCH ×2 (00:16→08:18)
[2022-09-08] MEDS: Levothyroxine 25 MCG TABLET PO SCH (06:11)
[2022-09-08] MEDS: Morphine Sulfate Oral CONC 10 MG/0.5 ML ORAL.SYG SL SCH ×6 (06:55→22:05)
[2022-09-08] MEDS: *HR* LORazepam Oral Conc 2 MG/ML SL SCH ×2 (08:17→22:04)
[2022-09-08] MEDS: *HR* Amiodarone 200 MG TABLET PO SCH (08:18)
[2022-09-08] MEDS ORDERED: Scopolamine Patch 1.5 MG PATCH.TD72 TD SCH (14:00)
[2022-09-08] MEDS: Glycopyrrolate 0.2 MG/ML VIAL IVP PRN ×2 (18:43→23:22)
[2022-09-09 07:01] VITALS: BP 130/64; PULSE 101; TEMP 101.4
[2022-09-09] MEDS: Morphine Sulfate Oral CONC 10 MG/0.5 ML ORAL.SYG SL SCH ×3 (07:56→08:09)
[2022-09-09] MEDS: *HR* LORazepam Oral Conc 2 MG/ML SL SCH (09:21)
== END 2022-09-09 10:15 | disposition expired | DRG 871 ==
LOC: EMEROOARM 10:47 → 3BNU 10:47 → ICNU 08-31 08:12 → SUATTDRO 08-31 09:44 → 2ANU 09-02 12:56 → 2NENU 09-04 00:31 → 2ANU 09-08 16:30
PROVIDERS: ADMIT Hospitalist; ATTEND Internal Medicine